=== PATIENT | male | born 1965 | race Hispanic/Latino ===

== ENCOUNTER 2021-03-15 21:23 | Emergency (ER) | payer BC, SELFPAY | END 2021-03-15 23:25 | disposition home or self-care (01) | LOC: NAV ERS 21:23 | DX: S09.90XA Unspecified injury of head, initial encounter (principal); S82.001A Unspecified fracture of right patella, initial encounter for closed fracture; S30.0XXA Contusion of lower back and pelvis, initial encounter; S60.221A Contusion of right hand, initial encounter; W11.XXXA Fall on and from ladder, initial encounter | CPT/HCPCS: 70450; 72128; 72131 ==